=== PATIENT | female | born 1980 | race Caucasian/White ===

== ENCOUNTER 2021-02-03 22:47 | Emergency (ER) | payer BC ==
[~2021-02-03] VITALS: Ht 170.2 cm; Wt 112.5 kg
[2021-02-04] MEDS ORDERED: ALBU8.5H INH (01:55)
[2021-02-04] MEDS ORDERED: AUGM875T28 PO (01:55)
[2021-02-04] MEDS ORDERED: BENZONATATE 100MG CAPSULE PO ONE (02:15)
[2021-02-04] MEDS ORDERED: ALBUTEROL 90 MCG/ACT 8GM HFA INHALER INH ONE (02:15)
[2021-02-04 02:18] LABS: RSV AMPLIFICATION NEGATIVE (NEGATIVE)
--- NOTE | 2021-02-04 04:47 | REPVR ---
PROCEDURE INFORMATION: Exam: XR Chest Exam date and time: 02/04/2021 3:13 AM Age: 40 years old Clinical indication: Cough and wheezing; Additional info: Cough, wheezing TECHNIQUE: Imaging protocol: XR of the chest. Views: 1 view. COMPARISON: No relevant prior studies available. FINDINGS: Lungs: Unremarkable. No consolidation. Pleural spaces: Unremarkable. No pleural effusion. No pneumothorax. Heart/Mediastinum: Unremarkable. No cardiomegaly. Bones/joints: Unremarkable. IMPRESSION: No acute findings. Electronically signed by: Kendall Molina On 02/04/2021 04:47:25 AM
[2021-02-04 05:21] VITALS: BP 107/67
== END 2021-02-04 05:21 | disposition home or self-care (01) ==
LOC: M ED 22:47
DX: J06.9 Acute upper respiratory infection, unspecified (principal); F17.200 Nicotine dependence, unspecified, uncomplicated; Z88.1 Allergy status to other antibiotic agents